=== PATIENT | male | born 1955 | race Caucasian/White ===

== ENCOUNTER 2024-06-29 14:07 | Outpatient (RCR) | payer MEDICARE, OTHER, SELFPAY | END 2024-09-18 09:27 | disposition home or self-care (01) | LOC: ANHDMC 14:07 | PROVIDERS: Visit Provider Internal Medicine | DX: E11.9 Type 2 diabetes mellitus without complications (principal); Z71.89 Other specified counseling | CPT/HCPCS: G0108 ==